=== PATIENT | male | born 1990 | race African-American/Black ===

== ENCOUNTER 2018-02-07 06:46 | Emergency (ER) | payer SELFPAY ==
[~2018-02-07] VITALS: Ht 170.2 cm; Wt 59.0 kg
[~2018-02-07 06:46] MED LIST: BENADRYL25 MG PO; EPIPEN 2-P0.3 MG/0.3 INJ; MEDROL4 M2 PO; NAPROXEN500 MG PO; PERCOCET 325 MG1 TA2 PO; POLYTRIM EYE DR10 ML OPH; TRIAMCINOLONE A15 G1 TOP; TRIAMCINOLONE A15 G3 TOP; TYLENOL #31 TAB PO; VICKS NYQUIL PO
[2018-02-07 07:01] VITALS: BP 128/73
--- NOTE | 2018-02-07 07:51 | RADIOLOGY REPORT ---
EXAMINATION: XR SHOULDER, RIGHT CLINICAL INFORMATION: Pain with limited range of motion. [place] pop. COMPARISON: None TECHNIQUE: Three views of the right shoulder. FINDINGS: No evidence of acute fracture or dislocation. The right humeral head articulates appropriately with the glenoid. The joint space is maintained. The acromioclavicular joint is intact. The visualized lung is clear. IMPRESSION: No evidence of acute fracture or malalignment.
[2018-02-07] MEDS ORDERED: IBUPROFEN600 M1 PO (07:59)
--- NOTE | 2018-02-07 08:00 | ED UPPER/LOWER EXTREMITY COMPL ---
History of Present Illness General Chief Complaint: Shoulder Injury Stated Complaint: RT SHOUDER PAIN "IT BEEN ACTING UP ALL THE TIME" Source: patient, family, old records Exam Limitations: no limitations Vital Signs & Intake/Output Vital Signs & Intake/Output Vital Signs Date Time Temp Pulse Resp B/P B/P Pulse O2 O2 Flow FiO2 Mean Ox Delivery Rate 02/07 0704 95 Room Air 02/07 0701 98.6 125 18 128/73 95 Room Air Allergies Coded Allergies: nut - unspecified (BACK OF THROAT ITCHES AND SWELLS 02/07/18) tramadol (RASH 02/07/18) Uncoded Allergies: DERMACELL (DRIES SKIN OUT 04/09/17) Reconcile Medications Ibuprofen 600 MG TABLET 1 TAB PO Q6P PRN pain with food Triage Note: TRIAGE: PATIENT TO ER FROM HOME REPORTING "ALL THE TIME. MY R SHOULER DROPS AND I FEEL IT POP WITH ANY TYPE OF STRAINING." PATIENT NOTED MOST COMFORTABLE W/ ARM AT 90 DEGREE ANGLE AND BEING HELD BY OTHER ARM FOR SUPPORT. PATIENT DENIES ANY RECENT INJURIES. REPORTS HE IS UNABLE TO MOVE HIS ARM AT THIS TIME. Triage Nurses Notes Reviewed? yes Onset: Evening Duration: hour(s):, constant, continues in ED Timing: recent history Severity: severe Pain/Injury Location: Right: Shoulder. Method of Injury: sports injury Modifying Factors: Improves With: immobilization. Worsens With: movement. Associated Symptoms: GCS 15 since, stiffness HPI: 8 hours prior to admission while playing basketball patient reports dislocating his right shoulder. He denies fever chills nausea vomiting diarrhea abdominal pain chest pain shortness breath headache dysuria rash bleeding. Past History Travel History Traveled to [place] past 21 day No Medical History Any Pertinent Medical History? 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 No Review of Systems Review of Systems Constitutional: Reports: no symptoms. EENTM: Reports: no symptoms. Respiratory: Reports: no symptoms. Cardiovascular: Reports: no symptoms. Gastrointestinal/Abdominal: Reports: no symptoms. Genitourinary: Reports: no symptoms. Musculoskeletal: Reports: see HPI, joint swelling. Skin: Reports: no symptoms. Neurological/Psychological: Reports: no symptoms. Hematologic/Endocrine: Reports: no symptoms. Immunological: Reports: no symptoms. All Other Systems: Reviewed and Negative Physical Exam Physical Exam General Appearance: well developed/nourished, alert, awake, anxious, mild distress Head: atraumatic, normal appearance Eyes: Bilateral: normal appearance, PERRL, EOMI. Ears, Nose, Throat: normal pharynx, normal ENT inspection, hearing grossly normal Neck: normal inspection, supple, full range of motion, no midline tenderness Cardiovascular/Respiratory: normal breath sounds, normal peripheral pulses, regular rate/rhythm, no respiratory distress Peripheral Pulses: 4+ carotid (R), 4+ carotid (L) Back: normal inspection, normal range of motion, no vertebral tenderness Shoulder Left: normal range of motion, normal inspection Shoulder Right: normal inspection, soft tissue tenderness, limited range of motion Elbow Left: normal range of motion, normal inspection Elbow Right: normal range of motion, normal inspection Hand Left: normal inspection, normal range of motion Hand Right: normal inspection, normal range of motion Upper Extremity Reflexes: 2+: bicep (R), bicep (L). Leg Left: normal range of motion, normal inspection Leg Right: normal range of motion, normal inspection Hip Left: normal range of motion, normal inspection Hip Right: normal range of motion, normal inspection Knee Left: normal range of motion, normal inspection Knee Right: normal range of motion, normal inspection Foot Left: normal inspection, normal range of motion Foot Right: normal inspection, normal range of motion Lower Extremity Reflexes: 2+: knee (R), knee (L). Neurologic/Tendon: normal sensation, normal motor functions, normal tendon functions Skin: intact, normal color, warm/dry Lymphatic: no anterior cervical marisela Progress Differential Diagnosis: dislocation, fracture, sprain Plan of Care: Orders Procedure Date/time Status Durable Medical Equipment 02/07 0755 Active Current Medications Sig/Tess Start time Last Medication Dose Stop Time Status Admin Ibuprofen 600 MG ONCE ONE 02/07 0800 UNVr 02/07 (Motrin) 02/07 0801 0759 Diagnostic Imaging: Viewed by Me: Radiology Read. Discussed w/RAD: Radiology Read. Radiology Impression: No evidence of acute fracture or malalignment. Departure Departure Time of Disposition: 757 Disposition: HOME OR SELF CARE Condition: Stable Clinical Impression Primary Impression: Shoulder dislocation, recurrent Qualifiers: Laterality: right Qualified Code: M24.411 - Recurrent dislocation, right shoulder Referrals: Nae CASTELAN,Angel Goodman Call for orthopedic follow up Departure Forms: Customer Survey General Discharge Information Prescriptions: Current Visit Scripts Ibuprofen 1 TAB PO Q6P PRN pain #50 TAB with food
== END 2018-02-07 08:04 ==
LOC: ERH 06:46
DX: M24.411 Recurrent dislocation, right shoulder (principal)
CPT/HCPCS: 73030-RT

== ENCOUNTER 2018-04-06 17:05 | Emergency (ER) | payer SELFPAY ==
[~2018-04-06] VITALS: Ht 170.2 cm; Wt 63.5 kg
[~2018-04-06 17:05] MED LIST changes: +IBUPROFEN600 M1 PO
[2018-04-06 17:09] VITALS: BP 120/89
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
[2018-04-06] MEDS ORDERED: CYCLOBENZAPRINE10 M1 PO (20:22)
[2018-04-06] MEDS ORDERED: IBUPROFEN800 M1 PO (20:22)
== END 2018-04-06 20:28 ==
LOC: ERH 17:05
DX: S16.1XXA Strain of muscle, fascia and tendon at neck level, initial encounter (principal); S20.211A Contusion of right front wall of thorax, initial encounter; S20.212A Contusion of left front wall of thorax, initial encounter; S09.90XA Unspecified injury of head, initial encounter; V49.40XA Driver injured in collision with unspecified motor vehicles in traffic accident, initial encounter; Y92.9 Unspecified place or not applicable; Y93.89 Activity, other specified
CPT/HCPCS: 74176; 87040